=== PATIENT | male | born 1965 | race African-American/Black ===

== ENCOUNTER 2019-03-25 08:45 | Inpatient (IN) | payer OTHER ==
[~2019-03-25] VITALS: Ht 182.9 cm; Wt 87.5 kg
--- NOTE | ~2019-03-25 | HC ---
[facility] [place] [address] CONSULTATION Name: DURGA LUCIA Room #: 352-P ADM IN M.R.#: [id number] Admission: 03/25/19 ������������������ Attend Phys: Misael Webb MD Discharge: ������������������ Date of : 65 Report #: [id number] THIS REPORT FOR: //name// CC: IRAM physician/PCP Misael Webb DATE OF SERVICE: 03/26/2019 HISTORY OF PRESENT ILLNESS: The patient is a 52-year-old male admitted with left-sided weakness, numbness, has been off his blood pressure medications for the last several months. CT of the head was negative. He is noted to have hypertensive urgency 199/137. He was diagnosed with a CVA with left-sided weakness and Neurology noted that his initial presentation was quite pronounced with minimal movement of the left upper and left lower extremity. He notes his symptoms have improved overnight and that he now has some more movement of the left upper and left lower extremity. Denies any visual problems. Denies any swallowing difficulties. We are seeing him in rehabilitation medicine consultation. PAST MEDICAL HISTORY: Negative for stroke. He does have history of polysubstance abuse. MEDICATIONS: Please see the full medication listing. FAMILY HISTORY: Unremarkable. 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 There are 6 steps into his apartment. He has an involved nephew. He was premorbidly independent, ambulatory drove. HABITS: Noted to have a history of cocaine use on a regular basis. Tobacco one half pack per day for 35 years. Alcohol beer daily are "depending on the money I have." REVIEW OF SYSTEMS: No current complaints of chest pain, shortness of breath, abdominal discomfort. PHYSICAL EXAMINATION: GENERAL: The patient is a 53-year-old male in no obvious distress. He is alert and oriented. VITAL SIGNS: Last recorded temperature 97.7, pulse 57, respirations 20, blood pressure 150/126. HEENT: Appeared to be benign. NEUROLOGIC: Cranial nerves are grossly intact. No obvious visual field neglect to confrontation. He appears to have a mild depressed left nasolabial fold. He has functional range of motion and strength of the right upper and right lower [address] [address] CONSULTATION Name: [facility] Room #: 352-P [facility] IN .R.#: [id number] Admission: 03/25/19 ������������������ Attend Phys: Misael Webb MD Discharge: ������������������ Date of : 65 Report #: [id number] extremity. Left upper extremity strength is probably a grade 3+/5. Left lower extremity also is a grade 3+/5. He has definite decreased coordination and slow movement, but has better than antigravity, movement proximal and distal upper and lower extremity. Sensation was reasonably intact to simultaneous stimulation. Tone appeared to be reasonably intact. ASSESSMENT: The patient is a 53-year-old male with the following problem list: 1. 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 2. Hypertensive urgency. 3. Polysubstance abuse. 4. Functional mobility, ADL deficits. PLAN: Therapy evaluations are underway. We will be glad to follow regarding rehab therapy needs. ��������������������������������������������� ���������������������������������������� By: ��������������������������������������������� [id number] Fred Sanchez MD /nt
[2019-03-25 08:47] VITALS: BP 199/137
[2019-03-25 09:09] LABS: ABSOLUTE NEUTROPHILS 3.3 thou/uL (1.4-8.2); BASOPHILS 1.2 % (0.0-2.0); EOSINOPHILS 2.5 % (0.0-3.0); HEMATOCRIT 38.9 % (42.0-52.0); LYMPHOCYTES 23.5 % (24.0-44.0); MCH 29.3 pg (26.0-34.0); MCHC 33.4 g/dL (28.0-37.0); MCV 87.6 fL (80.0-100.0); MONOCYTES 11.8 % (1.0-8.0); PLATELET COUNT 292 thou/uL (150-400); RBC 4.44 mil/uL (4.50-6.00); WBC 5.4 thou/uL (4.0-11.0)
[2019-03-25 09:16] LABS: ANION GAP 12 mmol/L (7-16); BUN 19 mg/dL (7-18); CALCIUM 9.2 mg/dL (8.5-10.1); CHLORIDE 106 mmol/L (98-107); CO2 24 mmol/L (21-32); CREATININE 1.2 mg/dL (0.7-1.3); GLUCOSE 102 mg/dL (74-106); POTASSIUM 4.1 mmol/L (3.5-5.1); SODIUM 142 mmol/L (136-145)
[2019-03-25 09:21] LABS: APTT 28.8 Seconds (24.5-32.8); PROTIME 9.8 Seconds (9.3-11.4)
[2019-03-25 09:25] LABS: ALBUMIN 3.3 g/dL (3.4-5.0); SGOT 24 U/L (15-37); SGPT 18 U/L (30-65); TOTAL BILIRUBIN 0.3 mg/dL (<0.1-1.0); TROPONIN-I <0.06 ng/mL (<0.06)
[2019-03-25 12:20] LABS: FOLIC ACID 9.6 ng/mL (8.6-58.9); TSH 1.299 uIU/mL (0.358-3.740)
--- NOTE | 2019-03-25 15:09 | 2DMMODE ---
[facility] [address] [place] [address] 2 D/M-MODE ECHOCARDIOGRAM Name: DURGA LUCIA Room #: 170-6 ADM IN ..#: [id number] ������������� Admission: 03/25/19 ������������� Attend Phys: Misael Webb, Discharge: ��� ������������� ��� Date of : 65 Date of Service: 03/25/19 1509 �� Report #: [id number] �������� ��������������������������������������������[id number] THIS REPORT FOR: //name// APPROVED REPORT Study performed: 03/25/2019 13:47:08 EXAM: Comprehensive 2D, Doppler, and color-flow Echocardiogram Patient Location: In-Patient Room #: 170-6 Status: routine BSA: 2.11 HR: 57 bpm BP: 210/119 mmHg Rhythm: Bradycardia Other Information Study Quality: Good Indications CVA/TIA Hx; [employer] use, cocaine use, Echo Enhancing Agent Indication: Rule Out Septal Defect Agent(s) / Amount(s) Used: Agitated Saline 7 cc 2D Dimensions RVDd: 38.51 mm IVSd: 14.05 (7-11mm) LVOT Diam: 19.92 (18-24mm) LVDd: 38.40 mm PWd: 14.32 (7-11mm) Ascending Ao: 33.94 (22-36mm) LVDs: 28.98 (25-40mm) Aortic Root: 33.39 mm Volumes Left Atrial Volume (Systole) Single Plane 4CH: 78.10 mL Single Plane 2CH: 51.24 mL LA ESV Index: 34.00 mL/m2 Aortic Valve AoV Peak Anthony.: 1.23 m/s AO Peak Gr.: 6.00 mmHg LVOT Max P.75 mmHg LVOT Max V: 0.83 m/s CARINE Vmax: 2.11 cm2 [facility] [place] [address] 2 D/M-MODE ECHOCARDIOGRAM Name: [facility] Room #: 170-6 ADM IN M.R.#: [id number] ������������� Admission: 03/25/19 ������������� Attend Phys: Misael Webb, Discharge: ��� ������������� ��� Date of : 65 Date of Service: 03/25/19 1509 �� Report #: [id number] �������� ��������������������������������������������[id number] Mitral Valve E/A Ratio: 0.9 MV Decel. Time: 364.91 ms MV E Max Anthony.: 0.43 m/s MV A Anthony.: 0.49 m/s MV PHT: 105.82 ms IVRT: 115.34 ms Pulmonary Valve PV Peak Anthony.: 0.81 m/s PV Peak Gr.: 2.65 mmHg Pulmonary Vein P Vein S: 0.45 m/s P Vein A: 0.18 m/s P Vein D: 0.27 m/s P Vein A Dur.: 78.4 msec P Vein S/D Ratio: 1.67 Left Ventricle The left ventricle is normal size. Mild concentric left ventricular hypertrophy. The left ventricular systolic function is normal. LVEF is 55-60%. Mild diastolic dysfunction is present (impaired relaxation pattern). Right Ventricle The right ventricle is normal size. The right ventricular systolic function is normal. Atria Left atrium is at the upper limits of normal. No shunting by contrast bubble injection. The right atrium size is normal. Aortic Valve The aortic valve is normal in structure. No aortic regurgitation is present. There is no aortic valvular stenosis. Mitral Valve The mitral valve is normal in structure. Trace to mild mitral regurgitation. No evidence of mitral valve stenosis. Tricuspid Valve The tricuspid valve is normal in structure. Trace tricuspid regurgitation. Unable to assess PA pressure. Pulmonic Valve The pulmonary valve is normal in structure. There is no pulmonic valvular regurgitation. [facility] [address] [place] [address] 2 D/M-MODE ECHOCARDIOGRAM Name: DURGA LUCIA Room #: 170-6 [facility] IN ..#: [id number] ������������� Admission: 03/25/19 ������������� Attend Phys: Misael Webb, Discharge: ��� ������������� ��� Date of : 65 Date of Service: 03/25/19 1509 �� Report #: [id number] �������� ��������������������������������������������[id number] [employer]els The aortic root is normal in size. The ascending aorta is normal in size. IVC is normal in size and collapses >50% with inspiration. Pericardium There is no pericardial effusion. <Conclusion> The left ventricle is normal size. Mild concentric left ventricular hypertrophy. The left ventricular systolic function is normal. Mild diastolic dysfunction is present (impaired relaxation pattern). The right ventricle is normal size. Left atrium is at the upper limits of normal. The right atrium size is normal. No shunting by contrast bubble injection. The aortic valve is normal in structure. Trace to mild mitral regurgitation. Trace tricuspid regurgitation. ��������������������������������������������� <ELECTRONICALLY SIGNED> ���������������������������������������� By: Bobby Lou MD ��������������������������������������������� 03/25/19 1509 1509 1509 Bobby Lou MD /INF
[2019-03-25 15:42] VITALS: BP 201/119
[2019-03-25 16:30] VITALS: BP 176/104
[2019-03-25 17:07] VITALS: BP 190/119
--- NOTE | 2019-03-25 18:53 | NUR ---
patient admitted to floor from ER, he is GCS of 15 and NIH of 0 currently. he denies pain or discomfort, dr Evans request for permissive hypertension. other vss. sr on the monitor.
[2019-03-25 19:25] VITALS: BP 148/91
[2019-03-25] MEDS ORDERED: PRINIVIL20 MG PO (19:39)
[2019-03-25] MEDS ORDERED: ATENOLOL 25 MG25 M1 PO (19:39)
[2019-03-25 23:10] LABS: GLYCOHEMOGLOBIN (HGB A1C) 5.8 % (4.8-5.6)
[2019-03-25 23:30] VITALS: BP 175/116
--- NOTE | 2019-03-26 02:32 | NUR ---
PATIENT IS ALERT AND ORIENTED. PATIENT HAS HX OF SUBSTANCE ABUSE. TO EARLY FOR SIGNS OF WITHDRWAL (NO SIGNS AT THIS TIME). PATIENT IS NSR ON TELE. PATIENTS LBM WAS THE 17TH. PATIENT HAS WEAKNESS TO LEFT ARM LT FACAL DROOP. PATIENT SCORES NIH OF 5. PATIENT DENIES PAIN. LT ARM IS TENDER WITH STIMULATION. PATIENT IS RESTING COMFORTABLY IN BED. PATIENT ON ROOM AIR. PATIENT IS PROGRESSING TO GOALS.
[2019-03-26 04:00] VITALS: BP 185/118
[2019-03-26 05:42] LABS: ABSOLUTE NEUTROPHILS 2.4 thou/uL (1.4-8.2); BASOPHILS 0.8 % (0.0-2.0); HEMATOCRIT 37.6 % (42.0-52.0); HEMOGLOBIN 12.6 gm/dL (14.0-18.0); LYMPHOCYTES 40.8 % (24.0-44.0); MCH 29.6 pg (26.0-34.0); MCHC 33.4 g/dL (28.0-37.0); MCV 88.6 fL (80.0-100.0); MONOCYTES 11.1 % (1.0-8.0); PLATELET COUNT 281 thou/uL (150-400); POLYS 44.3 % (36.0-66.0); RBC 4.24 mil/uL (4.50-6.00); RDW 14.1 % (10.5-14.5); WBC 5.5 thou/uL (4.0-11.0)
[2019-03-26 05:54] LABS: ANION GAP 9 mmol/L (7-16); BUN 13 mg/dL (7-18); CALCIUM 9.3 mg/dL (8.5-10.1); CHLORIDE 104 mmol/L (98-107); CHOLESTEROL 164 mg/dL (<200); CO2 26 mmol/L (21-32); CREATININE 1.2 mg/dL (0.7-1.3); GLUCOSE 109 mg/dL (74-106); HDL CHOLESTEROL 57 mg/dL (>40); LDL CHOLESTEROL 83 mg/dL (<100); POTASSIUM 3.8 mmol/L (3.5-5.1); SODIUM 139 mmol/L (136-145); TC:HDL 2.9 Ratio (Not establshd); TRIGLYCERIDE 121 mg/dL (<150); VLDL 24 mg/dL (<40)
[2019-03-26 06:03] LABS: SERUM ASSESSMENT Clear
[2019-03-26 07:27] VITALS: BP 150/126
--- NOTE | 2019-03-26 09:29 | NUR ---
PATIENT ALERT AND ORIENTED. PT/OT/ST WILL WORK WITH PT TODAY. WILL RECHECK NIHSS AND CONTINUE TO ASSESS.
--- NOTE | 2019-03-26 10:44 | NUR ---
INITIAL ASSESSMENT: Pt evaluated for d/c planning needs. Reviewed chart and spoke with nurse and pt. Pt is alert and oriented. Pt lives alone in apartment and is recently employed. He said he is able to walk to work from his apartment. Pt said he has no DME and has not had home health in the past. Pt is driving. Pt currently has no insurance coverage. Referral sent to [employer]. Will remain available to assist as needed.
[2019-03-26 11:33] VITALS: BP 145/93
--- NOTE | 2019-03-26 11:56 | NUR ---
FACESHEET FAXED TO [facility] FOR MEDICAID APPLICATION PROCESS.
--- NOTE | 2019-03-26 15:16 | NUR ---
PATIENT SEEN BY DR. DELVALLE THIS DATE FOR ACUTE REHAB CONSULT. PATIENT MAY BE A CANDIDATE FOR ACUTE REHAB. WILL CONTINUE TO FOLLOW AND SEE HOW PATIENT PROGESSES IN THERAPY. THANK YOU FOR THIS REFERRAL.
[2019-03-26 16:14] VITALS: BP 178/116
[2019-03-26 19:09] VITALS: BP 176/116
[2019-03-27] VITALS (8 sets, daily range): BP systolic 146–189; BP diastolic 81–130
--- NOTE | 2019-03-27 03:52 | NUR ---
PATIENT IS ALERT AND ORIENTED. PATIENT IS SBA TO THE BATHROOM. PATIENT IS NSR TO SINUS ESEQUIEL ON TELE. PATIENTS LBM WAS THE 19TH. NEUROLOGY SIGNED OFF. PLAN IS FOR PATIENT TO CONTINUE PT OT AND ST. POTENTIALY NEED REHAB. PATIENTS NIH IS 4 (FACAL DROOP, SLURRED SPEECH AND LT SIDED WEAKNESS). PATIENT DENIES PAIN. PATIENT IS RESTING COMFORTABLY IN BED. WCM. PATIENT IS PROGRESSING TO GOALS.
--- NOTE | 2019-03-27 14:35 | HC ---
[facility] [place] [address] CONSULTATION Name: DURGA LUCIA Room #: 352-P ADM IN M.R.#: [id number] Admission: 03/25/19 ������������������ Attend Phys: Misael Webb MD Discharge: ������������������ Date of : 65 Report #: [id number] THIS REPORT FOR: //name// CC: IRAM physician/PCP Misael Webb DATE OF SERVICE: 03/25/2019 HISTORY OF PRESENT ILLNESS: This is a 53-year-old male patient who was evaluated by me for weakness on the left side. It looks like he woke up with it since yesterday. He used cocaine the day before. He had more weakness or neglect on the left side. He fell, he did not have any pain, and he indicated that he did not hit his head. He is pretty profoundly weak on the left side. REVIEW OF SYSTEMS: Positive for polysubstance abuse. He uses cocaine on a regular basis. He smokes. He drinks alcohol. When asked how much alcohol he drinks, he says "it depends on how much money I have." He denies any prior history of stroke. REVIEW OF SYSTEMS: A 14-point review of system was carried out and mainly positive for polysubstance abuse. FAMILY HISTORY: Unremarkable. SOCIAL HISTORY: He smokes and drinks alcohol. PAST MEDICAL HISTORY: According to him is negative for stroke. PHYSICAL EXAMINATION: Indicates he is alert. He is responsive. He can follow simple commands. His cranial nerve examination indicates left facial palsy, although I cannot be certain about the visual field. I do not think he has any pronounced deficits there. He has pretty minimal movement on the left upper and left lower extremities. There is no cerebellar sign. I could not look at the fundus. Tone may be actually somewhat increased on the left side. Reflexes are symmetrical. He is a moderately built individual. He has no edema, cyanosis or jaundice. Cardiac examination appeared unremarkable. No respiratory difficulty was noticed. Pulses are palpable. Blood pressure is 201/119, respirations 13, pulse is 64, temperature is 98.3. He is a moderately built individual. He has no thyroid mass. There is no carotid bruit. IMPRESSION: Probably lacunar cerebrovascular accident secondary to polysubstance abuse, especially cocaine and tobacco. [facility] [address] [place] [address] CONSULTATION Name: [facility] Room #: 352-P [facility] IN M.R.#: [id number] Admission: 03/25/19 ������������������ Attend Phys: Misael Webb MD Discharge: ������������������ Date of : 65 Report #: [id number] RECOMMENDATIONS: 1. Stroke workup as ordered. 2. Echocardiogram. 3. Aspirin if he is able to swallow by p.o., otherwise by suppository. 4. PT, OT and speech therapy, which is already ordered. ��������������������������������������������� <ELECTRONICALLY SIGNED> ���������������������������������������� By: Diego Evans MD ��������������������������������������������� 03/27/19 1435 1321 1601 Diego Evans MD /nt
--- NOTE | 2019-03-27 18:02 | NUR ---
PTis A&OX3, PT gets up to chair and bathroom with assist, pt still is weak at left side, pt's NIH stroke scale score is 4-5, RN has reported to DR about pt's SPB 180-189/115-124MMHG, PT has new BP medications. Lisinopril 2.5mg po has giving at 1744pm.increasing amlodipine to 10mg today.RN will report to next shift to keep eye on pt.
--- NOTE | 2019-03-28 00:03 | NUR ---
PT LYING IN BED. VOIDING PER URINAL. DENIES PAIN. RESTING COMFORTABLY. NO NEEDS VOICED. CALL LIGHT WITHIN REACH. WILL CONTINUE TO PROVIDE FREQUENT OBSERVATION.
[2019-03-28 03:18] VITALS: BP 144/100
[2019-03-28 08:00] VITALS: BP 161/103
[2019-03-28 11:22] VITALS: BP 145/96
--- NOTE | 2019-03-28 11:33 | NUR ---
care of pt assumed this am @ ~0700. pt noted to be awake, requesting to go to the btm now for bm w/ urgent tone. pt noted to have lt ue and le weakness upon ambulation (w/ gait belt and walker). pt encouraged to be out of bed as much as possible today. pt up to chair for breakfast, no n/v/d noted. pt request to take his pills whole w/ water, one at a time. fall precautions in place. pt denies co pain. pt is hopeful for dc tomorrow, pt comes from home, but dr. manrique stated pt would need skilled facility (for rehab) prior to dc home.
[2019-03-28 16:45] VITALS: BP 137/107
--- NOTE | 2019-03-28 17:58 | EKG ---
[place] [address] [employer] [place] [address] ELECTROCARDIOGRAM REPORT Name: DURGA LUCIA Room #: 352-P ADM IN M.R.#: [id number] ������������������ Admission: 03/25/19 ������������������ Attend Phys: Misael Webb MD Discharge: ������������������ Date of : 65 Report #: [id number] ����������������������������������������������������������������� [id number] THIS REPORT FOR: //name// [facility] ED Test Date: 2019-03-25 Test Time: 09:05:58 Pat Name: DURGA LUCIA Department: Room: [facility] Gender: M Manager Procurement: ANDREA : 1965 Requested By: Gallito Mendoza Order Number: [id number] MD: Chandler Farnsworth Measurements Intervals [place] Rate: 62 P: 73 NM: 160 QRS: -24 QRSD: 107 T: 1 QT: 445 QTc: 452 Interpretive Statements Sinus rhythm Borderline T abnormalities, inferior leads ST elev, probable normal early repol pattern No previous ECG available for comparison Electronically Signed On 03-28-2019 17:57:46 CDT by Chandler Farnsworth [email or web address] ��������������������������������������������� <ELECTRONICALLY SIGNED> ���������������������������������������� By: Chandler Farnsworth MD, [facility] ��������������������������������������������� 03/28/19 1757 4 Chandler Farnsworth MD, [facility] /EPI
[2019-03-28 20:22] VITALS: BP 150/92
[2019-03-29] VITALS (7 sets, daily range): BP systolic 132–164; BP diastolic 83–108
--- NOTE | 2019-03-29 05:11 | NUR ---
Pt. has slept well during the night. No change in neuro status. SB when asleep and SR while awake. Bed alarm on for safety. Making some progress towards care plan goals.
[2019-03-29] MEDS ORDERED: LIPITOR40 MG PO (09:03)
[2019-03-29] MEDS ORDERED: AMLODIPINE BESY10 MG PO (09:04)
[2019-03-29] MEDS ORDERED: LISINOPRIL10 MG PO (09:04)
[2019-03-29] MEDS ORDERED: ASA5UEC PO (09:04)
[2019-03-29] MEDS ORDERED: PRINIVIL20 MG PO (09:09)
--- NOTE | 2019-03-29 13:42 | NUR ---
PT's asessment has done, pt is A&OX3, PT's left side waekness has improved, no new s/s of CVA, pt's vs are stable at this time, pt gets up to chair with assist, pt denies pain and sob, pt will discharge to rehab unit today.
--- NOTE | 2019-03-29 14:05 | NUR ---
DISCHARGE NOTE: PASTORA reviewed chart and spoke with nursing and attending physician. Pt is medically stable for discharge to [facility] today. PASTORA discussed with [facility] rehab nurse, who states they are able to accept pt today. PASTORA met with pt at bedside to provide update. Pt is agreeable with moving to [facility] later today. SW offered to contact his family. Pt declines and states he will notify family. Referral sent to [facility], as pt does not have health insurance. PASTORA is following to assist as needed with discharge planning.
--- NOTE | 2019-03-29 16:07 | NUR ---
RN has received dr order to discharge pt to [facility] rehab unit, RN has giving report and notified pt's family about pt to rehab, R arm piv has removed.pt is going to [facility] 509 bed by W/C NOW.
== END 2019-03-29 16:15 | DRG 65 ==
LOC: ER 08:45 → EROBS 09:55 → 3W 09:55 → ENTRNSPT 03-29 16:06 → 3W 03-29 16:15
PROVIDERS: Emergency Medicine; Nurse Practitioner; ADMIT Internal Medicine
DX: I63.9 Cerebral infarction, unspecified (principal); G81.94 Hemiplegia, unspecified affecting left nondominant side; I10 Essential (primary) hypertension; R47.1 Dysarthria and anarthria; F14.10 Cocaine abuse, uncomplicated; I16.0 Hypertensive urgency; R97.20 Elevated prostate specific antigen [PSA]; E53.8 Deficiency of other specified B group vitamins; F17.210 Nicotine dependence, cigarettes, uncomplicated; Z86.73 Personal history of transient ischemic attack (TIA), and cerebral infarction without residual deficits; Z79.899 Other long term (current) drug therapy; Z71.51 Drug abuse counseling and surveillance of drug abuser
CPT/HCPCS: 10879

== ENCOUNTER 2019-03-29 12:30 | Inpatient (IN) | payer OTHER ==
[~2019-03-29] VITALS: Ht 182.9 cm; Wt 84.8 kg
[~2019-03-29 12:30] MED LIST: AMLODIPINE BESY10 MG PO; ASA5UEC PO; ATENOLOL 25 MG25 M1 PO; LIPITOR40 MG PO; LISINOPRIL10 MG PO; PRINIVIL20 MG PO
--- NOTE | 2019-03-29 15:48 | NUR ---
cm received phone call from pt sister larry joshi [phone], yes it is ok to talk with me or my sister rosalio andino, " just wanted to know what to do to get my brother disability started and what you will be doing for him up on the ot [place]?"/larry. education on dcp, team meeting, dme- equip, home cares as need. education on using [place] web-[place] to get shalonda or can send referral to [employer] to see if pt will qualified for [place]icaid. will cont following as needed for dc needs.
--- NOTE | 2019-03-29 16:20 | NUR ---
pt up in wheel chair, on way to [facility] acute rehab. intro to dcp, and team meeting. no co or concerns voiced. will cont following as needed for dc needs. 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
[2019-03-29 16:25] VITALS: BP 134/84
[2019-03-29 18:14] VITALS: BP 134/84
[2019-03-29 19:30] VITALS: BP 165/106
--- NOTE | 2019-03-29 20:10 | NUR ---
RECEIVED REPORT FROM NURSE ON 3W AT 1600. PT TRANSFERED TO UNIT AT APPROXIMATELY 1630. ADMISSIONS NURSE ADMITTED PT. PT IN BED, EDUCATION GIVEN, PT ORIENTED TO ROOM AND UNIT. DINNER TRAY GIVEN TO PT. VITAL SIGNS OBTAINED, MEDICATIONS FAXED TO PHARMACY, CONSENTS SIGNED, ASSESSMENT COMPLETED, CONSULTS CALLED. FALL PRECAUTIONS IN PLACE AND NURSING WILL CONTINUE TO MONITOR.
[2019-03-29 21:34] VITALS: BP 152/105
--- NOTE | 2019-03-30 03:55 | NUR ---
PT ASSESSMENT COMPLETED AND VSS. MEDS GIVEN ORDERED AND WELL TOLERATED. FALL PRECAUTIONS IN PLACE. CONTACTED PHYSICAL THERAPY MANAGER REGARDING ELEVATED BP THIS EVENING. PT HAS HAD AN ELEVATED BP SINCE HIS STROKE. PHYSICAL THERAPY MANAGER AWARE AND NO NEW ORDERS AT THIS TIME. WILL BE ADDRESSED IN AM WITH PRIMARY. SUPPORTIVE FAMILY AT BEDSIDE. VOIDING LARGE AMOUNT OF YELLOW URINE. LEFT SIDED WEAKNESS IMPROVING PER PT. PT PLANS TO WORK HARD WITH THERAPY TO IMPROVE STRENGTH AND INDEPENDENCE. SLEEPING WELL. WILL CONTINUE TO MONITOR FREQUENTLY.
[2019-03-30 06:44] LABS: HEMATOCRIT 40.5 % (42.0-52.0); HEMOGLOBIN 13.4 gm/dL (14.0-18.0); MCH 29.2 pg (26.0-34.0); MCHC 33.1 g/dL (28.0-37.0); MCV 88.3 fL (80.0-100.0); RBC 4.58 mil/uL (4.50-6.00); RDW 13.6 % (10.5-14.5); WBC 5.6 thou/uL (4.0-11.0)
[2019-03-30 07:00] LABS: CREATININE 1.2 mg/dL (0.7-1.3); POTASSIUM 4.3 mmol/L (3.5-5.1)
[2019-03-30 07:13] LABS: CALCIUM 9.4 mg/dL (8.5-10.1)
[2019-03-30 08:00] VITALS: BP 138/80
--- NOTE | 2019-03-30 10:33 | NUR ---
ASSUMED CARE AT 0700. PATIENT IS ALERT AND ORIENTEDX4. PATIENT HAS SLIGHT FACIAL DROOP, LEFT SIDED WEAKNESS. AND SOME SLURED SPEECH. PATIENT CANO'S, FINE CRAFT ARTIST ARE WEAK ON LEFT SIDE. LUNGS ARE CLEAR. ABD IS SOFT WITH BSX4. PATIENT IS UP WITH ASSIST OF 1 STAFF AND GAIT BELT AND WALKER TO CHAIR FOR MEALS. FALL AND SAFETY PROTOCOLS IN PLACE. DENIES ANY PAIN AT THIS TIME. CONTINUES TO PROGRESS TOWARDS D/C GOALS. WILL CONTINUE TO MONITER.
--- NOTE | 2019-03-30 13:59 | NUR ---
team meeting, recommendation: 10 steps at apartment. re team, seek disability if needed rt unable to work at this time. possible needs to stay with family at dc. pt is cont to work with therapy. will cont following as needed for dc needs.
[2019-03-30 19:00] VITALS: BP 136/86
--- NOTE | 2019-03-31 03:26 | NUR ---
ASSESSMENT: PT REMAIN ALERT AND ORIENT TIMES THREE, AT TIMES HAVING EXPRESSIVE APHASIA. ABLE TO LET NEEDS BE KNOWN. VSS, AFEBRILE. DENIES PAIN, SOB AND NAUSEA. CONTINUAL PROGRESS TOWARDS DC GOALS, WILL CONTINUE TO MONITOR.
[2019-03-31 08:50] VITALS: BP 137/79
[2019-03-31 08:58] VITALS: BP 137/79
--- NOTE | 2019-03-31 10:08 | NUR ---
Message left for the [employer] liason to contact the pt's sisters to guide the family on helping initiate the pt's SSD and [place] medicaid applications.
--- NOTE | 2019-03-31 12:34 | NUR ---
ASSUMED CARE AT 0700. REPORTS SLEPT GOOD LAST NIGHT. PATIENT IS ALERT AND ORIENTEDX4. ABLE TO VOICE HIS OWN NEEDS. PATIENT HAS SLIGHT FACIAL DROOP, LEFT SIDED WEAKNESS. AND SOME SLURED SPEECH. SADDLE STITCHER ARE WEAK ON LEFT SIDE. LUNGS ARE CLEAR. ABD IS SOFT WITH BSX4. PATIENT IS UP WITH ASSIST OF 1 STAFF AND GAIT BELT AND WALKER, HAS LEFT SIDE WEAKNESS. FALL AND SAFETY PROTOCOLS IN PLACE. DENIES ANY PAIN AT THIS TIME. OFFERED SUPPORTIVE CARE. VSS ON RA. REASSESSMENT PER CHART. HAD BM TODAY. CONT B&B, ASSISTED TO BATHROOM DURING DAY, HE USES URINAL AT NIGHT TIME. PT LIKES TO DRINK COFFEE. DISCUSSED ABOUT SIDE EFFECT OF COFFEE ON HEART AND ENCOURAGED PT TO TRY TO DRINK LESS COFFEE ON THE EVENING. NOTICED INSPECTOR PLUG SEAM CHANGED PT'S DIET TO REG DIET. CONTINUES TO PROGRESS TOWARDS D/C GOALS. WILL CONTINUE TO MONITOR.
--- NOTE | 2019-03-31 14:05 | NUR ---
Patient participated in community reintegration on 03/31/19 with Speech Therapy. Refer to documentation by
--- NOTE | 2019-03-31 17:34 | NUR ---
Patient participated in community reintegration on 03/31/19 with SPEECH THRAPIST. Refer to documentation by .SPEECH THERAPIST
[2019-03-31 20:04] VITALS: BP 140/85
--- NOTE | 2019-04-01 03:10 | NUR ---
assumed care at approx 1900 evening 03/31. pt lying in bed with head of bed elevated. pt alert and oriented x4, appropriate and cooperative. pt voiding per urinal. pt denies pain. pt appears to be sleeping soundly with hourly rounding checks. bed alarm on and call light in reach. will continue to monitor.
[2019-04-01 08:55] VITALS: BP 134/79
--- NOTE | 2019-04-01 09:56 | NUR ---
ASSUMED CARE AT 0700. PATIENT IS ALERT AND ORIENTED X4. MUNDO DE [place] ROSAE'S, LEFT SIDE IS WEAK WITH NO FINE MOTOR CONTROL. PATIENT CONTINUES TO HAVE MILD SLURRED SPEECH. UP TO THE CHAIR FOR MEALS WITH WALKER AND GAIT BELT. LUNGS ARE CLEAR. ABD IS SOFT WITH BSX4. NO EDEMA NOTED IN HIS LOWER EXTREMITIES. DENIES ANY PAIN AT THIS TIME. CONTINUES TO PROGESS TOWARDS D/C GOALS. WILL CONTINUE TO MONITER.
[2019-04-01 19:50] VITALS: BP 138/75
--- NOTE | 2019-04-02 04:10 | NUR ---
ASSUMED CARE OF PT AT 0715. PT IS A&OX4 WITH SOME SLURRED SPEECH. IS ON ROOM AIR. IS STABLE. HAS LEFT SIDED WEAKNESS. IS UP WITH 1 ASSIST & GAIT BELT. REFUSES WALKER. FALL PRECAUTIONS & HOURLY ROUNDING MAINTAINED. LABS & VITALS REVIEWED. PT IS ABLE TO TURN SELF IN BED. IS CURRENTLY SLEEPING. CALL LIGHT WITHIN REACH. WILL CONTNUE TO MONITOR.
[2019-04-02 08:27] VITALS: BP 155/105
--- NOTE | 2019-04-02 14:27 | NUR ---
ASSUMED CARES AT 0700. PT AWAKE, ALERT AND ORIENTED*4. DENIES PAIN. BP ELEVATED THIS AM, BP LOWERING MEDS ADMINISTERED. PT C/O SKIN RASH ON BACK, ABDOMEN AND RIGHT ELBOW THAT WAS ALSO ITCHY, HOSPITALIST PAGED, AWAITING CALL BACK & / ORDERS. CONTINUES TO HAVE LEFT SIDED WEAKNESS AND SLURRED SPEECH. UP WITH 1 MIN ASSIST, GAITBELT AND TOLERATED WELL. Q1H VISUAL CHECKS. CALL LIGHT WITHIN REACH. FALL PRECAUTIONS IN PLACE
[2019-04-02 19:35] VITALS: BP 157/102
--- NOTE | 2019-04-03 02:40 | NUR ---
ASSUMED CARE OF PT AT 1915. PT A&OX4, BLOOD PRESSSURE 157/102 AND ASYMPTOMATIC. SHRINKER NOTIFIED ABOUT ELEVATED B/P AND ORDERS OBTAINED TO GIVE 50MG ONETIME DOSE OF HYDRALAZINE. BLOOD PRESSURE RECHECKED AT 1130 AND WAS 128/75. PT REPORTED RASH ON BACK, ARMS, AND ABDOMEN TO DAY SHIFT NURSE, PROVIDER ORDERS FOR HYDROCORTIZONE CREAM WHICH WAS APPLIED BY THIS NURSE, PT REPORTED DECREASED ITCHING. TOLERATED HS MEDICAITONS WHOLE WITH THIN LIQUIDS. CALLS APPROPRAITELY. FALL PRECAUTIONS IN PLACE AND NURSING WILL CONTINUE TO MONITOR.
[2019-04-03 08:30] VITALS: BP 141/85
--- NOTE | 2019-04-03 13:59 | NUR ---
ASSUMED CARES AT 0700. REPORTS SLEPT GOOD. PT AWAKE, ALERT AND ORIENTED*4. DENIES PAIN. VSS ON RA. REASSEMENT PER CHART. CONTINUE TO PUT CREAM FOR SKIN RASH ON BACK, ABDOMEN AND RIGHT ELBOW HE SAID IT HELPS. CONTINUES TO HAVE LEFT SIDED WEAKNESS AND SLURRED SPEECH. SPEECH WORKING WITH THERAPY AND ENCOURAGE PT TO CALL NURSE FOR MEDS. WITH 1 MIN ASSIST, GAITBELT AND TOLERATED WELL. Q1H VISUAL CHECKS. CALL LIGHT WITHIN REACH. FALL PRECAUTIONS IN PLACE. WILL CONTINUE TO MONITOR.
[2019-04-03 19:05] VITALS: BP 155/99
--- NOTE | 2019-04-04 02:02 | NUR ---
assumed care at approx 1900 evening 04/03. pt alert and oriented x4, appropriae and cooperative. pt stated he had a good day with therapy. pt voidiing per urinal. pt denies pain. pt took hs meds with water tolerating well. pt appears to be sleeping soundly with hourly rounding. bed alarm on and call light in reach. will continue to monitor.
--- NOTE | 2019-04-04 08:23 | HC ---
[facility] [place] [address] CONSULTATION Name: DURGA LUCIA Room #: 509-P ADM IN M.R.#: [id number] Admission: 03/29/19 ������������������ Attend Phys: Fred Sanchez MD Discharge: ������������������ Date of : 65 Report #: [id number] THIS REPORT FOR: //name// CC: Fred Sanchez [facility] physician/PCP DATE OF SERVICE: 04/03/2019 NEUROBEHAVIORAL STATUS EXAM ATTENDING PHYSICIAN: Fred Sanchez MD. SPECIAL DELIVERY MESSENGER: Moi Munoz, PhD. CLINICAL PRESENTATION: The patient is a 53-year-old -H[place]ian male initially admitted to the [facility] with left-sided weakness. He had not been taking medication for high blood pressure for several months and has a history of cocaine use. Patient indicated having used cocaine prior to the hypertensive event. 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 Additional diagnoses included polysubstance abuse, functional mobility and ADL deficits and cognitive - communcation concerns. Neuropsychological consultation was requested to assist with diagnosis, treatment recommendations and services as needed. Prior to this most recent admission, he was living independently in his own home. The patient reports having had 3 children, but never . He has 2 sisters, 1 brother and 1 half-biological brother. 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 He does not report a prior history of treatment for depression or anxiety. He reports a history of cocaine, alcohol, and cannabis use. TECHNIQUES UTILIZED: Clinical interview, review of medical records, staff consultation and behavioral observation, mini mental status exam 2 standard version, clock drawing and letter fluency assessment (letter and category). EXAMINATION FINDINGS: The patient was alert and cooperative with the assessment. He accurately described the reason for his admission. There is no evidence of aphasia. His thoughts are logical and goal oriented. There is no evidence of thought disorder. He does not report auditory or visual hallucinations. He does indicate feeling anxious and depressed. He reports a history of cocaine use, intermittent use of alcohol and cannabis. Since his stroke he does not report difficulty with memory, sleep or appetite. However, he is noticing occasional difficulty with word finding. [address] [address] CONSULTATION Name: [facility] Room #: 509-P [facility] IN M.R.#: [id number] Admission: 03/29/19 ������������������ Attend Phys: Fred Sanchez MD Discharge: ������������������ Date of : 65 Report #: [id number] His performance on the MMSE 2 brief version is within normal limits with a raw score of 14. He was 3/3 for initial registration, 4/5 for orientation to time, 5/[address] and 2/3 for immediate recall of 3 items after a brief time delay and distraction. Performance on the MMSE 2 standard version is within normal limits with a raw score of 28/30. He was 5/5 for serial sevens, 2/2 for naming, 1/1 for repetition, 3/3 for comprehension. He was able to read and follow single command, write a sentence and copy a simple geometric design. Clock drawing was within normal limits. Letter fluency was at the 16th percentile, which is low average with a T score of 40. Category fluency was in the borderline range with a T score of 31 and percentile rank of 3. As indicated, clock drawings within normal limits. This type of presentation suggests a mild vascular neurocognitive disorder with deficits likely in executive functioning. DIAGNOSTIC IMPRESSION: Mild vascular neurocognitive disorder, without behavioral disturbance. Unspecified Anxiety Disorder Cocaine and Cannabis Use Disorder Tobacco Use Disorder RECOMMENDATIONS: Continued psychological services as necessary to assist in overall adjustment. The patient is feeling positive about his progress. However, he is uncertain about his ability to resume his prior occupation. Educational information regarding the contribution of substance abuse and poor medical compliance with medication for high blood pressure to his CVA. Following discharge he will need involvement in a substance abuse treatment program. Patient will also need follow up neuorpsychological assessment after discharge to clarify his cognitive functioning and the extent of lingering deficits. The use of verbal praise and complements about participation in therapies and emphasizing progress will assist his overall adjustment. Thank you very much for allowing me to provide the consultation on this patient. ��������������������������������������������� <ELECTRONICALLY SIGNED> ���������������������������������������� By: Moi Munoz, PhD ��������������������������������������������� 04/04/19 0823 1230 [id number] Moi Munoz, PhD /nt
[2019-04-04 09:11] VITALS: BP 148/109
--- NOTE | 2019-04-04 10:40 | NUR ---
ASSUMED CARES AT 0700. PT AWAKE, ALERT AND ORIENTED*4. DENIES PAIN. DBP ELEVATED, BP LOWERING MED ADMINISTERED. PT CONTINUES TO HAVE LEFT SIDED WEAKNESS AND SLURRED SPEECH. CONTINUES TO HAVE A RASH ON THE BACK, ABDOMEN AND RIGHT ELBOW, HYDROCORTISONE CREAM APPLIED. UP WITH SBA, GAITBELT ONLY AND TOLERATED WELL. Q1H VISUAL CHECKS. CALL LIGHT WITHIN REACH. FALL PRECAUTIONS IN PLACE.
[2019-04-04 11:48] VITALS: BP 131/87
[2019-04-04 19:00] VITALS: BP 153/98
--- NOTE | 2019-04-04 23:38 | NUR ---
PT ASSESSMENT COMPLETED AND VSS. MEDS GIVEN ORDERED AND WELL TOLERATED. FALL PRECAUTIONS IN PLACE. VOIDING MODERATE AMOUNT OF DARK YELLOW URINE PER URINAL. SUPPORTIVE GIRLFRIEND AT BEDSIDE. SLEEPING WELL. WILL CONTINUE TO MONITOR FREQUENTLY.
--- NOTE | 2019-04-05 02:42 | NUR ---
FALL PRECAUTIONS IN PLACE. BED AND CHAIR ALARMS ON. UP WITH ASST/GAIT/WALKER AND YELLOW SLIPPERS. STEADY. SLEEPING. WILL CONTINUE TO MONITOR FREQUENTLY.
[2019-04-05 08:35] VITALS: BP 140/94
--- NOTE | 2019-04-05 14:14 | NUR ---
ASSUMED CARES AT 0700. ALERT AND ORIENTED*4. ABLE TO VOICE HIS NEED. DENIES PAIN. VSS ON RA. REASSEMENT PER CHART. MEDS GIVEN ORDERED. CONTINUE TO PUT CREAM FOR SKIN RASH ON BACK, ABDOMEN AND RIGHT ELBOW HE SAID IT HELPS. CONTINUES TO HAVE LEFT SIDED WEAKNESS AND SLURRED SPEECH. SPEECH WORKING WITH THERAPY. HIS GOALS TO WORK ON HIS LEFT LEG TO GET STRONGER. AMBULATORY SBA/ GAITBELT WITHOUT DEVICE. TOLERATED WELL AND PROGRESS TO D/C GOALS. Q1H VISUAL CHECKS. CALL LIGHT WITHIN REACH. FALL PRECAUTIONS IN PLACE. WILL CONTINUE TO MONITOR.
--- NOTE | 2019-04-05 15:15 | NUR ---
PT WAS ON THE CHAIR AT 2PM PER HEALTH SANITARIAN, 2:30 PHYSICAL THERAPIST LOOKED FOR HIM AND NOTIFIED THIS CLIENT RENEWAL SPECIALIST THAT PT WASN'T IN THE ROOM. SEARCHING FOR PT AND CALLED SECURITY THAT PT IS OFF THE UNIT. MEAN WHILE THIS CLIENT RENEWAL SPECIALIST CALLED HIS SISTER AND ASKED FOR HIS CELL PHONE AND NOTIFIED THAT STAFF IS LOOKING FOR PT. OTHER NURSE INFORMED THIS CLIENT RENEWAL SPECIALIST THAT PT HAD 2 FRIENDS VISIT IN THE ROOM EARLIER. PT'S SISTER CALLED BACK AND SAID PT IS OUT SIDE WITH HIS FRIEND AND SHE ADVICED PT TO GET BACK TO HIS ROOM. HIS FRIENDS BROUGHT HIS BACK IN THE WC. POCKET SEARCHED.PT SAID HE JUST WENT OUT WITH HIS FRIENDS FOR FRESH AIR. INFORMED PT THAT HE NEEDS TO ASK STAFF BEFORE LEAVE THE UNIT. SECURITY AND HOUSE SUPERIVOR WERE NOTIFIED THAT PT IS BACK ON THE UNIT. WILL CONTINUE TO MONITOR.
--- NOTE | 2019-04-05 15:33 | NUR ---
PT WAS ON THE CHAIR WITH A CHAIR ALARM AT 2PM PER HYDROSTATIC TESTER, 2:30 PHYSICAL THERAPIST LOOKED FOR HIM AND NOTIFIED THIS DIRECTOR OF CASINO MARKETING THAT PT WASN'T IN THE ROOM. SEARCHING FOR PT AND CALLED SECURITY THAT PT IS OFF THE UNIT. MEAN WHILE THIS DIRECTOR OF CASINO MARKETING CALLED HIS SISTER AND ASKED FOR HIS CELL PHONE SINCE PT LEFT WITH HIS CELL PHONE AND NOTIFIED HER THAT PT IS NOT IN THE HOME AND STAFF IS LOOKING FOR PT. OTHER NURSE INFORMED THIS DIRECTOR OF CASINO MARKETING THAT PT HAD 2 FRIENDS VISIT IN THE ROOM EARLIER. PT'S SISTER CALLED BACK AND INFORMED THIS DIRECTOR OF CASINO MARKETING THAT PT WAS OUT SIDE WITH HIS FRIENDS AND ADVICED PT TO GET BACK TO HIS ROOM SINCE STAFF IS SEARCHING FOR HIM AND SHE SAID HE IS HEADING BACK TO THE UNIT. PT HIS FRIENDS BROUGHT HIS BACK IN THE WC SHORTLY AFTER OFF THE UNIT. POCKET SEARCHED SINCE PT HAD HX OF SUBSTANCE ABUSE. PT SAID HE JUST WENT OUT WITH HIS FRIENDS FOR FRESH AIR. INFORMED PT THAT HE NEEDS TO ASK STAFF BEFORE LEAVE THE UNIT. SECURITY AND HOUSE SUPERIVOR WERE NOTIFIED THAT PT IS BACK ON THE UNIT. WILL CONTINUE TO MONITOR.
[2019-04-05 19:40] VITALS: BP 154/86
--- NOTE | 2019-04-06 00:04 | NUR ---
PT ASSESSMENT COMPLETED AND VSS. MEDS GIVEN ORDERED AND WELL TOLERATED. FALL PRECAUTIONS IN PLACE. PT WORKING HARD TO HANDLE HIS OWN SELF CARE. ENCOURAGING PT TO USE HIS LEFT SIDE MUCH POSSIBLE. PT HAS BEEN REACHING FOR THINGS ON HIS OWN. A FEW DAYS AGO PT ASKED FOR A LOT MORE HELP. SLEEPING WELL AT THIS TIME. VOIDING MODERATE AMOUNT OF YELLOW URINE. WILL CONTINUE TO MONITOR FREQUENTLY.
[2019-04-06 08:40] VITALS: BP 140/95
--- NOTE | 2019-04-06 11:42 | NUR ---
ASSUMED CARES AT 0700. VSS ON RA. ALERT AND ORIENTEDX4. ABLE TO VOICE HIS NEED. DENIES PAIN. REASSEMENT PER CHART. MEDS GIVEN ORDERED. CONTINUES TO HAVE LEFT SIDED WEAKNESS AND SLURRED SPEECH. SPEECH WORKING WITH THERAPY. HIS GOALS TO WORK ON HIS LEFT LEG TO GET STRONGER. AMBULATORY SBA/ GAITBELT WITHOUT DEVICE. TOLERATED WELL AND PROGRESS TO D/C GOALS. OFFERED SUPPORTIVE CARE. ENCOURAGED PT TO VOICE HIS NEEDS. Q1H VISUAL CHECKS. CALL LIGHT WITHIN REACH. FALL PRECAUTIONS IN PLACE. WILL CONTINUE TO MONITOR.
--- NOTE | 2019-04-06 13:41 | NUR ---
team meeting, recommendation: information stroke foundation, safety net packet, giuseppe for primary, pathways or [facility]. need to vouch for medciation 1 month no refill on medication. dc 04/14/19
[2019-04-06 19:20] VITALS: BP 143/94
--- NOTE | 2019-04-07 05:08 | NUR ---
ASSUMED PT CARE AROUND 1900. A&OX4. SOME LEFT SIDED WEAKNESS NOTED. SLIGHTLY SLURRED SPEECH BUT NO APHASIA. DENIES ANY PAIN OR SOA. VOIDS INDEPENDENTLY PER URINAL. PT SLEPT MOST OF THE NIGHT. RESP EVEN AND UNLABORED. FALL PRECAUTIONS IN PLACE. PROGRESSING TOWARD POC GOALS. WILL CONTINUE TO MONITOR FURTHER.
[2019-04-07 07:30] VITALS: BP 140/102
--- NOTE | 2019-04-07 10:39 | NUR ---
cm visited with pt and spoke with sister jenni via phone call about referral to be sent to [facility], medication management and get set up with [facility] after dc to get set up with fleet sales manager. " yes i will work on filling on finical forms and get back to you and you can send referral."/tia and sister. sarwat faxed over initial referral to [facility].
[2019-04-07 11:45] VITALS: BP 136/95
--- NOTE | 2019-04-07 12:04 | NUR ---
ASSUMED CARE AT APPROX 0715. PATIENT A/O X4. DENIES PAIN. LEFT SIDED WEAKNESS. UP X1 ASSIST GB AND WALKER. BP ELEVATED, MEDS ADMINISTERED, WILL RECHECK. PATIENT DENIES HEADACHE, VISION CHANGES, FEELING FATIGUED OR LIGHT HEADED. AMBULATED WITH THERAPIES, PARTICIPATED IN SCHEDULED TASKS WITH NO ISSUES PER SPEECH THERAPIST- PATIENT COMPLETED HIGHER LEVEL FUNCTIONING TASKS. PATIENT CALLS APPROPRIATELY FOR ASSISTANCE. ROUNDED ON HOURLY. WILL CONTINUE TO MONITOR.
[2019-04-07 19:35] VITALS: BP 153/97
--- NOTE | 2019-04-08 01:54 | NUR ---
assumed care at approx 1900 evening 04/07. pt lying in bed with head of bed elevated at change of shift. pt alert and oriented x4, appropriate and cooperative. pt voiding in urinal at bedside. pt took hs meds with water tolerating well. pt appears to be sleeping soundly with hourly rounding checks. bed alarm on and call light in reach. will continue to monitor.
[2019-04-08 07:50] VITALS: BP 130/80
--- NOTE | 2019-04-08 10:53 | NUR ---
Nutrition: Pt seen for LOS on rehab. Admitted for CVA. Hx HTN, polysubstance abuse. Weight this admit has ranged 187-193#. Originally seen by same RD on 03/26 prior to transfer, where he reported possible 12# weight loss, with UBW estimated at 205#. No active nutrition concerns. Pt eating essentially 100% of every meal - 99% meal average x 7 days. Pt agrees with strong appetite, no further nutrition needs. Reviewed good food, protein choices. Last BM 04/07. Remains low nutrition risk.
--- NOTE | 2019-04-08 14:20 | NUR ---
I have reviewed the documentation by Kavitha Petersen from 04/08/19 to 04/08/19 and I concur with it. LEOPOLDO SAINI M
--- NOTE | 2019-04-08 16:35 | NUR ---
ASSUMED CARE AT APPROX 0715. PATIENT A/O X4. DENIES PAIN. VSS. UP X1 SBA. MADE WHITE BELT PER THERAPY TEAM AND NURSING. PATIENT INSTRUCTED TO CALL FOR ASSISTANCE. COMPLIANT WITH FALL PRECAUTIONS THUS FAR. ROUNDED ON HOURLY. ANTICIPATED D/C NEXT WEEK. PATIENT HAS SET ALARM ON PHONE TO REMIND HIM TO CALL FOR MEDICATIONS. HYDROCORTISONE CREAM APPLIED TO R ELBOW, ABDOMEN, AND BACK- IMPROVED SINCE YESTERDAY. PATIENT RESTING IN RECLINER. WILL CONTINUE TO MONITOR.
[2019-04-08 19:35] VITALS: BP 143/96
--- NOTE | 2019-04-09 03:59 | NUR ---
Assumed pt @ 1900. Pt is A/OX4,VSS,denies pain on assessment. Up with contact guard assist with GB without any problems. Pt forgot to call at 2100 for HS meds stated he was wondering why the alarm went off and thought he already took his meds @ 2030 agreed to work on remembering to call for 0800 meds. Voiding per urinal without problems. Resting quietly eyes closed no distress noted, will continue to monitor pt.
[2019-04-09 08:00] VITALS: BP 135/96
--- NOTE | 2019-04-09 10:30 | NUR ---
appointment set up with giuseppe alvarado at [facility] location on 04/26/19 at 0920, he will need to bring his dc paper work, id, prof of income and resident alone with 25 $ for initial appointment. if needs to change appointment call with in 24hr of # [phone]. cm passed on information to pt and sister jenni.
[2019-04-09 10:33] VITALS: BP 137/96
--- NOTE | 2019-04-09 12:03 | NUR ---
PATIENT CARE WAS ASSUMED AT 0715.PATIENT IS ALERT AND ORIENTED X4.PT IS UP AB JOSE ALFREDO IN ROOM.PT HAS SLURRED SPEECH.LAST BM WAS 04/07.PT KNOWS TO CALL TO ASK FOR ASSISTANCE WHEN NEEDED.CALL LIGHT,PHONE AND PERSONAL BELONGINGS ARE WITHIN REACH.
--- NOTE | 2019-04-09 15:16 | PLAN ---
[facility] [place] [address] REHAB UNIT PLAN OF CARE Name: DURGA LUCIA Room #: 509-P ADM IN M.R.#: [id number] Admission: 03/29/19 ������������������ Attend Phys: Fred Sanchez MD Discharge: ������������������ Date of : 65 Report #: [id number] THIS REPORT FOR: //name// CC: Fred Sanchez [facility] physician/PCP PROGRESS NOTE/OVERALL PLAN OF CARE SUBJECTIVE: The patient is seen back today in followup. He is showing some improvement as far as his left-sided hemiparesis. He is working in therapies with transfers, min assist. Gait mod assist 200 feet without a device. Lower body dressing is mod assist. He does have mild comprehensive deficits. ASSESSMENT: 1. Right brain cerebrovascular accident with left hemiparesis. 2. Hypertensive urgency. 3. Polysubstance abuse. 4. Functional mobility and ADL deficits and cognitive communication concerns. PLAN: The overall plan of care is based on the preadmission screen, post-admission physician evaluation and information garnered from therapy assessments. 1. Estimated length of stay is probably at least 7 days to 14 days pending progress. 2. Medical prognosis is reasonably good. 3. Anticipated interventions includes the interdisciplinary acute inpatient rehabilitation program. 4. Anticipated functional outcomes would be for the patient to become modified independent. 5. Discharge destination would be back to the home setting. He will likely need increased assistance from family. 6. Expected therapy by discipline includes PT, OT and speech 1 hour per day each five days a week throughout the duration of the acute inpatient rehabilitation stay. ��������������������������������������������� <ELECTRONICALLY SIGNED> ���������������������������������������� By: Fred Sanchez MD ��������������������������������������������� 04/09/19 1516 0922 1447 Fred Sanchez MD /nt
--- NOTE | 2019-04-09 15:16 | H ---
[facility] [place] [address] HISTORY AND PHYSICAL Name: DURGA LUCIA Room #: 509-P ADM IN M.R.#: [id number] Admission: 03/29/19 ������������������ Attend Phys: Fred Sanchez MD Discharge: ������������������ Date of : 65 Report #: [id number] THIS REPORT FOR: //name// CC: Fred Sanchez [facility] physician/PCP DATE OF SERVICE: 03/29/2019 HISTORY AND PHYSICAL/POSTADMISSION PHYSICIAN EVALUATION HISTORY OF PRESENT ILLNESS: The patient is a 53-year-old -Cypriot male who originally admitted with left-sided weakness, numbness, had been off his blood pressure medications for the past several months. CT of the head was negative. He was noted to have hypertensive urgency 199/137. He was diagnosed with a CVA with left-sided weakness and Neurology noted that his initial presentation was quite pronounced with minimal movement of the left upper and left lower extremity. He noted the symptoms have improved some since his admission to the acute Med/Surg nuñez. Denied any visual problems or swallowing difficulties. He has been admitted for acute in-hospital inpatient rehabilitation. PAST MEDICAL HISTORY: Negative for stroke. He does have a history of polysubstance abuse. MEDICATIONS: Please see the full medication listing. This includes vitamins, herbals, and supplements per report. FAMILY HISTORY: Unremarkable. 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 There are 6 steps into his apartment. He has an involved Nephew. He apparently has a couple of involved sisters. He was premorbidly independent, ambulatory and drove. HABITS: History of cocaine use on a regular basis. Tobacco: One-half pack per day for 35 years. Alcohol: Includes beer daily "depending on the money I have." REVIEW OF SYSTEMS: No current complaints of chest pain, shortness of breath or abdominal discomfort. PHYSICAL EXAMINATION: GENERAL: The patient is a 53-year-old -Cypriot male, in no obvious distress. VITAL SIGNS: Last recorded temperature 97.8, pulse 61, respirations 16, and blood pressure 138/80. [facility] [address] [place] [address] HISTORY AND PHYSICAL Name: [place] Room #: 509-P [facility] IN M.R.#: [id number] Admission: 03/29/19 ������������������ Attend Phys: Fred Sanchez MD Discharge: ������������������ Date of : 65 Report #: [id number] CHEST: Sounded clear to auscultation. CARDIOVASCULAR: Regular rate and rhythm. ABDOMEN: Bowel sounds positive, nontender. GENITOURINARY AND RECTAL: Deferred. NEUROLOGIC: He was alert. Facies appeared symmetric. Cranial nerves are grossly intact without any obvious visual field neglect. He might have a mild depressed left nasolabial fold. Noted to have functional range of motion and strength of the right upper and right lower extremity. Left upper extremity strength is grade 3+/5. LLE, left lower extremity strength is 3+/5. He does have definite decreased coordination and slow movement. Sensation was reasonably intact to simultaneous stimulation. Transfers min assist with gait min assist 200 feet without a device. In occupational therapy, lower body dressing has been mod assist. He is on a mechanical soft, thin liquid diet. Mild comprehensive deficits, mild expressive deficits. ASSESSMENT: A 53-year-old -Cypriot male with the following problem list: 1. Right brain cerebrovascular accident with left hemiparesis. 2. Hypertensive urgency. 3. Polysubstance abuse. 4. Functional mobility and ADL deficits and cognitive communication concerns. PLAN: The patient is admitted for acute in-hospital inpatient rehabilitation. From a postadmission physician evaluation perspective, there are no relevant changes since the preadmission screening. Please see the above review of prior and current medical and functional conditions and comorbidities. Please see the patient's previous and current functional status. As far as risk of complications, the patient has multiple medical comorbidities as noted above. Initial plan of care involves the interdisciplinary acute inpatient rehabilitation program. Measurable functional goals would be for him to become modified independent with transfers, mobility, ADLs, improved cognition, communication, so he can hopefully return back to his home setting. Prognosis is reasonably good with estimated length of stay probably at least 10 days to 2 weeks, likely longer if needed. Prognosis is reasonably good with estimated length of stay as noted above. Potential barriers would include his multiple medical comorbidities and decreased functional status. ��������������������������������������������� <ELECTRONICALLY SIGNED> ���������������������������������������� By: Fred Sanchez MD ��������������������������������������������� 04/09/19 1516 1457 1544 Fred Sanchez MD /nt
[2019-04-09 20:55] VITALS: BP 146/93
--- NOTE | 2019-04-10 03:16 | NUR ---
PT RESTING IN ROOM AT [facility]IFT. A+OX4. UP ADLIB IN ROOM. TOOK HS MEDS PRESCRIBED. NO C/O PAIN. RASH ON RT ARM AND FLANK TREATED WITH HYDROCORTISONE CREAM. SLEPT WELL THROUGH THE NIGHT.
[2019-04-10 08:00] VITALS: BP 132/89
--- NOTE | 2019-04-10 16:44 | NUR ---
ASSUMED CARE AT APPROX 0715. PATIENT A/O X4. CALLS APPROPRIATELY FOR ASSITANCE. CALLED FOR MEDS THIS AM. VSS. DENIES PAIN. PARTICIPATED IN THERAPY. AMBULATING WITH SBA. HYDROCORTISONE APPLIED PER ORDERS, RASH ALMOST RESOLVED. WHITE BELT FALL PRECAUTIONS IN PLACE. ANTICIPATED D/C ON 04/14/19. PATIENT ROUNDED ON HOURLY. WILL CONTINUE TO MONITOR.
[2019-04-10 19:30] VITALS: BP 137/87
--- NOTE | 2019-04-11 02:02 | NUR ---
assumed care at approx 1900 evening 04/10. pt sitting up in recliner at change of shift resting and watching tv. pt alert and oriented x4, pleasant and cooperative. pt voiding per urinal. pt took hs meds with water tolerating well. pt appears to be sleeping soundly with hourly rounding checks. bed alarm on and call light in reach. will continue to monitor.
[2019-04-11 07:30] VITALS: BP 123/77
--- NOTE | 2019-04-11 12:26 | NUR ---
ASSUMED CARE AT 0700, SHIFT ASSESSMENT DONE, MEDS GIVEN, VSS. DENIES ANY PAIN, NAUSEA, VOMITING. A&O*4, ROOM AIR. WILL CONTINUE TO ASSESS AND ASSIST WITH ADLs NEEDED.
--- NOTE | 2019-04-11 17:00 | NUR ---
ASSUMED CARE OF PT AT 1245 THIS SHIFT. PT HAS BEEN COOPERATIVE, HAS DENIED ANY PAIN. PT IS CURRENTLY RESTING COMFORTABLY IN ROOM. EDUCATION WAS PROVIDED. PLAN OF CARE IS TO CONTINUE TO MONITOR AT THIS TIME.
[2019-04-11 19:05] VITALS: BP 136/87
--- NOTE | 2019-04-12 01:29 | NUR ---
ASSUMED CARE AT APPROX 1900 EVENING 04/11. PT ALERT AND ORIENTED X4, PLEASANT AND COOPERATIVE. PT STATED HE HAD A GOOD DAY. PT VOIDING PER URINAL. PT TOOK HS MEDS WITH WATER TOLERATING WELL. PT DENIES COMPLAINTS. PT APPEARS TO BE SLEEPING SOUNDLY WITH HOURLY ROUNDING CHECKS. BED ALARM ON AND CALL LIGHT IN REACH. WILL CONTINUE TO MONITOR.
[2019-04-12 07:16] LABS: ABSOLUTE NEUTROPHILS 3.7 thou/uL (1.4-8.2); BASOPHILS 1.3 % (0.0-2.0); EOSINOPHILS 3.3 % (0.0-3.0); HEMATOCRIT 38.9 % (42.0-52.0); HEMOGLOBIN 12.8 gm/dL (14.0-18.0); LYMPHOCYTES 31.8 % (24.0-44.0); MCH 28.8 pg (26.0-34.0); MCV 87.1 fL (80.0-100.0); MONOCYTES 9.3 % (1.0-8.0); PLATELET COUNT 363 thou/uL (150-400); POLYS 54.3 % (36.0-66.0); RBC 4.46 mil/uL (4.50-6.00); RDW 13.5 % (10.5-14.5); WBC 6.7 thou/uL (4.0-11.0)
[2019-04-12 07:29] LABS: CALCIUM 9.3 mg/dL (8.5-10.1); CREATININE 1.2 mg/dL (0.7-1.3); MAGNESIUM 2.1 mg/dL (1.8-2.4); POTASSIUM 4.3 mmol/L (3.5-5.1)
[2019-04-12 08:00] VITALS: BP 133/101
--- NOTE | 2019-04-12 18:34 | NUR ---
PATIENT A/O X4. DENIES PAIN. VSS. UP X1 ASSIST GB AND WALKER. CALLS APPROPRIATELY FOR ASSISTANCE AND FOR MEDICATIONS. RASH ON ABDOMEN AND ELBOW RESOLVED- HYDROCORTISONE CREAM CHANGED TO PRN PER PROVIDER, PATIENT NOTIFIED HE NEEDS TO CALL FOR MED IF NEEDED. PATIENT VERBALIZES UNDERSTANDING. PARTICIPATED IN THERAPY. FALL PRECAUTIONS IN PLACE. RESTING IN BED AT CHANGE OF SHIFT.
[2019-04-12 19:20] VITALS: BP 126/86
--- NOTE | 2019-04-13 00:42 | NUR ---
NURSES NOTE- ASSUMED CARE OF PATIENT AT APPROXIMATELY 1900. PATIENT IN BED WITH EYES OPEN UPON GREETING. HE IS CALM AND COOPERATIVE WITH THIS NURSE APPEARS WITH A EUTHYMIC AFFECT, LEFT SIDED SLURRED SPEECH AND WEAKNESS NOTED. PATIENT IS ALERT AND ORIENTED X4 AND ABLE TO MAKE NEEDS KNOWN. HE FOLLOWED SET SCHEDULE OF HIS ALARM FOR MEDICATIONS. COOPERATIVE WITH HS MEDS AND COULD RE TEACH THIS NURSE WHAT HIS MEDICATIONS WERE FOR. PROJECTED DISCHARGE IS FOR 04/14/19. WILL CONTINUE TO MONITOR.
[2019-04-13 08:10] VITALS: BP 124/91
[2019-04-13] MEDS ORDERED: PRINIVIL20 MG PO (10:10)
[2019-04-13] MEDS ORDERED: TYLENOL325 MG PO (10:10)
[2019-04-13] MEDS ORDERED: GABAPENTIN 100100 MG PO (10:10)
[2019-04-13] MEDS ORDERED: ASA5UEC PO (10:10)
[2019-04-13] MEDS ORDERED: LIPITOR40 MG PO (10:10)
[2019-04-13] MEDS ORDERED: AMLODIPINE BESY10 MG PO (10:10)
--- NOTE | 2019-04-13 11:16 | NUR ---
PATIENT CARE WAS ASSUMED AT 0715.PATIENT IS ALERT AND ORIENTED X4.PATIENT IS ABLE TO AMBULATE WITHIN THE ROOM ON HIS OWN, BUT WILL CALL FOR ASSISTANCE IF NEEDED.PATIENT TAKES PILLS WITH WATER WITHOUT ISSUES.PATIENT IS ABLE TO REMEMBER TO CALL FOR HIS MEDICATION AT 0900, WITH ALARM SET.PATIENT HAS NO COMPLAINS OF PAIN AT THIS TIME.PT HAS CALL LIGHT, PHONE, AND PERSONAL BELONGINGS WITHIN REACH.
--- NOTE | 2019-04-13 12:31 | NUR ---
team meeting, wi home tomorrow, per therapy sister going to pay to have his electricity turned back on. going to vouch for 1 month medication no refills. pt not to work or drive until cleared by his new physician at [facility]. no dme needs, made mod i in room to dinning room and back to room. pt still has safe net packet at bedside for reference out side hospital.
[2019-04-13 19:00] VITALS: BP 152/99
--- NOTE | 2019-04-14 00:23 | NUR ---
PT NOW UP ADLIB INSDE THE ROOM. GAIT SLOW BUT STEADY. ON ROOM AIR, NO SOB NOTED, VOIDING IN THE TOILET, DENIES PAIN, USING CALL LIGHT APPROPRIATELY, STILL HAVING WEAKNESS, HOURLY ROUNDING, MONITORED.
[2019-04-14 07:27] VITALS: BP 137/96
[2019-04-14 07:57] VITALS: BP 140/88
[2019-04-14 10:09] VITALS: BP 140/88
--- NOTE | 2019-04-14 10:51 | NUR ---
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 cm took rx to [facility] out[facility], total vouched $ 52.97. bedside staff to poultry picker his medication prior to pt dc home today. no dme needs. cm spoke with sister corie on 04/13/19 who stated his nephew going to pick him up today. cm re -education on safe net packet for assistance with pills while pt not working.
--- NOTE | 2019-04-14 12:32 | NUR ---
ASSUMED CARE AT APPROX 0715. PATIENT A/O X4. SLURRED SPEECH, BUT UNDERSTANDABLE. VSS. AM MEDS ADMINISTERED. PATIENT MOD I IN ROOM. DISCHARGE PAPERWORK REVIEWED WITH PATIENT APPROX 1115 THIS DATE, PACKET PROVIDED WITH DOCUMENTATION PER PHYSICIAN ORDERS. CARENOTES AND PATIENT HANDOUTS PROVIDED. PRESCRIPTIONS OBTAINED FROM OUTPATIENT PHARMACY AND BROUGHT UP TO PATIENT PRIOR TO DC. PATIENT WAS AWAITING RIDE AND AGREED TO CALL NURSES STATION AND TO HAVE [employer] ESCORT HIM OFF UNIT PER POLICY WHEN HIS RIDE ARRIVED. PATIENT'S RIDE ARRIVED TO HOSPITAL AND CAME UP TO UNIT TO ESCORT PATIENT HIMSELF, THE PATIENT WAS FRUSTRATED WITH HAVING TO WAIT. PATIENT AMBULATED OFF UNIT WITH HIS VISITOR/RIDE AT APPROX 1215.
== END 2019-04-14 13:34 | disposition home or self-care (01) | DRG 65 ==
LOC: ENTRNSPT 04-14 12:16
PROVIDERS: Nurse Practitioner; ADMIT Physical Medicine & Rehabilitation
DX: I63.9 Cerebral infarction, unspecified (principal); G81.94 Hemiplegia, unspecified affecting left nondominant side; I16.0 Hypertensive urgency; R26.9 Unspecified abnormalities of gait and mobility; F41.9 Anxiety disorder, unspecified; F14.10 Cocaine abuse, uncomplicated; F12.10 Cannabis abuse, uncomplicated; R47.81 Slurred speech; I10 Essential (primary) hypertension; E53.8 Deficiency of other specified B group vitamins; R21 Rash and other nonspecific skin eruption; Z71.51 Drug abuse counseling and surveillance of drug abuser; Z87.828 Personal history of other (healed) physical injury and trauma; Z79.899 Other long term (current) drug therapy
CPT/HCPCS: 10112